=== PATIENT | female | born 2000 | race Two or more races ===

== ENCOUNTER 2024-05-19 09:15 | Day surgery (SDC) | payer MEDICARE, MEDICAID, SELFPAY ==
[2024-05-18 11:18] VITALS: BMI 45.0
[2024-05-18 13:23] LABS: HCG Qualitative,Urine Negative
--- NOTE | 2024-05-18 14:11 | SUR.PREOP ---
Cardiac records reviewed with Dr Mcduffie.
[2024-05-19] VITALS (8 sets, daily range): BP systolic 106–138; BP diastolic 56–84; PULSE 60–84; RESP 12–17; TEMP 36.1–37; O2SAT 95–100; BMI 45.1
[2024-05-19] MEDS: RINGERS LACTATED 1000 ML 1,000 ML 20 ML IV (10:21)
--- NOTE | 2024-05-19 12:58 | SUR.PHASEI ---
pt arrived to PACU via gurney drowsy but arouses to verbal stimuli, breathing unlabored, dressing to bilateral ears clean, dry, and intact, report from Aristeo MORALES and Dr Mcduffie
--- NOTE | 2024-05-19 13:08 | PD.SUROPNT ---
Date of Procedure 05/19/24 Pre Op Diagnosis Bilateral eustachian tube dysfunction with recurrent otitis media and conductive hearing loss Post Op Diagnosis Bilateral eustachian tube dysfunction with recurrent otitis media and conductive hearing loss Procedure Bilateral myringotomy with insertion of type I Paparella tympanostomy tubes under general anesthesia Findings Very small ear canals with retracted tympanic membranes and a small amount of effusion on the right side. Procedure Description This is a 24-year-old female with recurrent otitis media and Down syndrome. Parents wish to proceed with insertion of tympanostomy tubes after audiometric testing confirmed a conductive hearing loss in abnormal tympanogram. Treatment options as well as risks were discussed including bleeding infection and perforation. Patient was transferred to the operative suite where she was anesthetized and intubated per LMA. Timeout was performed the patient was sterilely draped. Left ear was visualized with the operative microscope and cerumen removed. The canal was very small and only able to see the posterior half of the tympanic membrane due to anterior canal wall bulge. Radial incision was made inferiorly and effusion aspirated from the middle ear. Type I Paparella tube was inserted and attempting to inserted it slid forward past into the anterior sulcus. Initial attempts were unsuccessful in retrieving it so it was left in place and a second tube then inserted without difficulty. Similar procedure was formed on the opposite side. The initial tympanostomy tube was successfully inserted even though it was difficult due to the small canal size. There is minimal effusion on this side. Ciprodex drops were placed in the ear canals to prevent any clotting over the tubes. There was a small amount of oozing with insertion. Patient was then awakened and taken the recovery room in stable condition. Her parents were informed that there is a extra tympanostomy tube on the right side that should eventually roll out. Anesthesia other (General Per LMA) Pathology / specimen None Estimated Blood Loss 1 Surgeon Jesus Arredondo DO Surgical Staff Operation Date: 05/19/24 11:45 Case Staff Anesthesiologist: Carlos Enrique Mcduffie
--- NOTE | 2024-05-19 13:14 | SUR.OPER ---
Late Entry: Mother at bedside who acted as historian.
[2024-05-19] MEDS: ONDANSETRON INJ 2 MG/ML INJ 2 ML 4 MG IV (13:23)
--- NOTE | 2024-05-19 14:20 | SUR.PHASEII ---
pt awake, alert, able to follow commands, breathing unlabored, dressing to bilateral ears clean, dry, and intact, discharge instructions given with both parents at bedside-all questions answered, pt able to transfer to wheelchair with steady gait, pt discharged via wheelchair with all belongings and copies of discharge paperwork
== END 2024-05-19 14:20 | disposition home or self-care (01) ==
PROVIDERS: PCP Family Medicine; Referring Provider Otolaryngology; Visit Provider Otolaryngology
PROC: (CPT 69420; principal; 2024-05-19 11:30)
DX: H90.6 Mixed conductive and sensorineural hearing loss, bilateral (principal); H69.93 Unspecified Eustachian tube disorder, bilateral; H66.93 Otitis media, unspecified, bilateral; H90.2 Conductive hearing loss, unspecified
CPT/HCPCS: 69436; 80053; 81025; A4217; J1100; J2250; J2405; J2704; J3010; J3490; J7120; A9270

== ENCOUNTER → 2024-07-29 | Outpatient (CLI) | payer MEDICARE, MEDICAID, SELFPAY ==
--- NOTE | 2024-07-29 12:00 | XR_ITS ---
Examination: MRI of brain without intravenous contrast. MRI brain with intravenous contrast. Date and time of exam:July 29, 2024 1334 hours INDICATIONS: Episodes of dizziness and several falls over the last 2 years Technique: Multiple axial and sagittal images of the brain to been obtained. Siemens high-resolution 1.52 Lucila short bore scanner utilized. Sagittal sections, T1 weighted images, TR 500, TE 14, are performed. Axial sections proton-density and T2-weighted images have been obtained. Inversion recovery axial images, TR 9260, TE 111, TR 2500. Diffusion weighted images, axial sections, TR 4800, TE 128, B value 1000. Axial sections, ADC map, TR 4800, TE 128. Axial and coronal images were also obtained post 18 cc gadolinium administered intravenously. Findings:: Enlargement of the sella turcica is not present. The optic chiasm and infundibular stalk are not remarkable. There is no localized enlargement of the medulla or bubba. Fourth ventricle and cerebellar tonsils appear normal in position. No subacute area of hemorrhage density is seen. Fourth ventricle is midline. Mass in the cerebellopontine angle region is not evident. 7th and 8th nerve complexes exhibit symmetry Globes are symmetrical Orbital musculature including medial lateral rectus muscles do not exhibit abnormality Increased white matter signal is evident, scattered punctate foci increased signal in the frontal parietal white matter, for instance FLAIR image 12 Effacement of the cortical sulcal markings is not identified. Mass effect upon the ventricular system is not identified. Diffusion-weighted images demonstrate no focus of restricted diffusion Contrast images demonstrate no abnormal enhancement Impression: Negative for acute hemorrhage mass effect or midline shift No acute infarct Scattered punctate foci increased signal in the cerebral white matter, demyelinating disease pattern
[2024-07-29 12:39] LABS: HCG Qualitative,Urine Negative
== END | disposition home or self-care (01) ==
PROVIDERS: Referring Provider Physician Assistant; Visit Provider Physician Assistant
DX: R90.82 White matter disease, unspecified (principal); Z32.00 Encounter for pregnancy test, result unknown
CPT/HCPCS: 70553; 81025; A9579